=== PATIENT | female | born 2000 | race Hispanic/Latino ===

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

== ENCOUNTER 2021-01-23 10:10 | Emergency (ER) | payer OTHER ==
[~2021-01-23] VITALS: Ht 149.9 cm; Wt 122.5 kg
== END 2021-01-23 10:56 | disposition home or self-care (01) ==
LOC: ER 10:37
DX: S46.812A Strain of other muscles, fascia and tendons at shoulder and upper arm level, left arm, initial encounter (principal)
CPT/HCPCS: 99282